=== PATIENT | male | born 1970 | race African-American/Black ===

== ENCOUNTER → 2016-11-16 | Outpatient (REF) | payer MEDICARE, MEDICAID | LOC: M LAB REF 09:10 | PROVIDERS: ATTEND Physician Assistant Medical | DX: Z20.2 Contact with and (suspected) exposure to infections with a predominantly sexual mode of transmission (principal); Z11.3 Encounter for screening for infections with a predominantly sexual mode of transmission ==

== ENCOUNTER → 2018-06-10 | Outpatient (REF) ==
--- NOTE | 2018-06-10 15:56 | REP ---
Clinical: Pain and disability. Technique: AP, lateral, coned-down views of the lumbosacral spine. Findings: Straightening of normal lordosis is appreciated along with grade 1 retrolisthesis at the L5-S1 level of approximately 4 mm. Associated multilevel early osteophyte formation and endplate sclerosis noted at L3-4, L4-5, and L5-S1. Vertebral body contours are normal and there is no evidence for acute fracture / compression injury. Impression: Mild/early moderate degenerative changes. Electronically Signed by Akira Mcclain MD 06/10/2018 03:48 P
--- NOTE | 2018-06-10 15:57 | REP ---
Clinical: Pain and disability. Technique: AP, lateral, bilateral oblique views of the right knee. Findings: Mild arthritic changes include subchondral sclerosis along the tibial plateau and posterior patellar contour with very minimal marginal spurring and trace joint space narrowing. No acute fracture dislocation. Impression: Mild arthritic degenerative changes. Electronically Signed by Akira Mcclain MD 06/10/2018 03:49 P
== END ==
LOC: M SMT 15:28
PROVIDERS: ATTEND Internal Medicine
DX: Z02.71 Encounter for disability determination (principal)

== ENCOUNTER 2023-12-18 23:14 | Emergency (ER) | payer MEDICARE, MEDICAID ==
[~2023-12-18] VITALS: Ht 175.3 cm; Wt 59.0 kg
[2023-12-18 23:15] VITALS: TEMP 97.5
[2023-12-19 02:15] VITALS: BP 151/97; O2SAT 99
== END 2023-12-19 02:39 | disposition left against medical advice (07) ==
LOC: M ED 23:14
DX: Z53.21 Procedure and treatment not carried out due to patient leaving prior to being seen by health care provider (principal)

== ENCOUNTER 2024-12-03 18:13 | Emergency (ER) | payer MEDICARE, MEDICAID ==
[~2024-12-03] VITALS: Ht 180.3 cm; Wt 56.9 kg
[2024-12-03 18:20] VITALS: BP 167/99; TEMP 98.1; O2SAT 99
== END 2024-12-03 23:51 | disposition left against medical advice (07) ==
LOC: M ED 18:13
DX: Z53.21 Procedure and treatment not carried out due to patient leaving prior to being seen by health care provider (principal)

== ENCOUNTER → 2024-12-13 | Outpatient (REF) | payer MEDICARE ==
[2024-12-13 19:01] LABS: APPEARANCE, URINE CLEAR (CLEAR); BACTERIA, URINE AUTO NEGATIVE (NEGATIVE); BILIRUBIN, URINE AUTO NEGATIVE (NEGATIVE); BLOOD, URINE BLOOD NEGATIVE (NEGATIVE); GLUCOSE, URINE (UA) AUTO NEGATIVE (NEGATIVE); KETONE, URINE AUTO NEGATIVE (NEGATIVE); LEUKOCYTE ESTERASE, URINE AUTO TRACE (NEGATIVE); MUCUS, URINE SMALL (NEGATIVE); NITRITE, URINE AUTO NEGATIVE (NEGATIVE); PROTEIN, URINE AUTO NEGATIVE (NEGATIVE); RBC, URINE AUTO 1 /HPF (0-3); SPECIFIC GRAVITY URINE AUTO 1.015 (1.002-1.035); SQUAMOUS EPITHELIAL CELL UR AU 0 /HPF (0-6); UROBILINOGEN, URINE AUTO 0.2 mg/dL (0.0-2.0); WBC, URINE AUTO 6 /HPF (0-3)
[2024-12-13 19:49] LABS: ALT/SGPT 26 U/L (7.0-40); AST/SGOT 29 U/L (<34); CALCIUM LEVEL 9.2 MG/DL (8.5-10.1); CARBON DIOXIDE LEVEL 27 MMOL/L (20-31); CHLORIDE LEVEL 105 MMOL/L (98-107); CHOLESTEROL LEVEL 171 MG/DL (<200); CHOLESTEROL RISK RATIO 2.76 (<5); CREATININE FOR GFR 1.05 MG/DL (0.70-1.30); GLOMERULAR FILTRATION RATE 83.3 (>56); LDL CHOLESTEROL 99.1 MG/DL (<100); NON-HDL-C 109.1 MG/DL; POTASSIUM SERUM 4.5 MMOL/L (3.5-5.1); PSA SCREENING 1.45 NG/ML (< 4.00); SODIUM LEVEL 139 MMOL/L (136-145); TRIGLYCERIDES LEVEL 50 MG/DL (<150)
[2024-12-13 19:57] LABS: HEPATITIS B SURFACE ANTIBODY POSITIVE (POSITIVE)
[2024-12-13 20:21] LABS: HIV 1&2 SCREEN NEGATIVE (NEGATIVE)
[2024-12-13 20:30] LABS: HEPATITIS C VIRUS ABY INDEX < 0.02 INDEX (<0.8)
== END ==
LOC: M SFHCLERA 10:59
PROVIDERS: ATTEND Internal Medicine
DX: Z00.00 Encounter for general adult medical examination without abnormal findings (principal); R63.4 Abnormal weight loss; Z12.5 Encounter for screening for malignant neoplasm of prostate; E78.00 Pure hypercholesterolemia, unspecified
CPT/HCPCS: 80053; 80061; 81001; 84443; 86704; 86705; 86706; 86803; 87340; 87389; G0103

== ENCOUNTER → 2025-01-02 | Outpatient (CLI) | payer MEDICARE, MEDICAID ==
[2025-01-02 12:33] LABS: ESTIMATED AVERAGE GLUCOSE 120.0 MG/DL (60-110)
[2025-01-02 12:35] LABS: BASO # 0.1 10^3/uL (0.0-0.2); BASO % 0.6 % (0.0-1.0); EOS # 0.3 10^3/uL (0.0-0.5); EOS % 3.0 % (0.0-3.0); LYMPH # 1.9 10^3/uL (1.5-5.0); LYMPH % 22.1 % (24.0-44.0); MONO # 0.6 10^3/uL (0.0-0.8); MONO % 7.3 % (2.0-8.0); NEUTROPHILS # 5.8 10^3/uL (1.5-8.5); NEUTROPHILS % 66.9 % (36.0-66.0); PLATELET COUNT, AUTOMATED 320 10^3/uL (150-450)
[2025-01-02 13:16] LABS: HIV 1&2 SCREEN NEGATIVE (NEGATIVE)
[2025-01-02 13:24] LABS: HEPATITIS C VIRUS ABY INDEX < 0.02 INDEX (<0.8)
== END ==
LOC: M LAB 11:44
PROVIDERS: ATTEND Internal Medicine
DX: Z00.00 Encounter for general adult medical examination without abnormal findings (principal); R63.4 Abnormal weight loss; Z79.899 Other long term (current) drug therapy; Z11.59 Encounter for screening for other viral diseases

== ENCOUNTER 2025-03-07 13:22 | Emergency (ER) | payer MEDICARE ==
[~2025-03-07] VITALS: Ht 180.3 cm; Wt 60.9 kg
[2025-03-07 17:24] VITALS: BP 152/87; TEMP 98.6; O2SAT 100
== END 2025-03-07 17:25 | disposition home or self-care (01) ==
LOC: M ED 13:22
DX: K40.90 Unilateral inguinal hernia, without obstruction or gangrene, not specified as recurrent (principal); Z88.0 Allergy status to penicillin